=== PATIENT | male | born 1965 | race Caucasian/White ===

== ENCOUNTER 2024-12-10 13:58 | Outpatient (AMB) | payer OTHER, SELFPAY ==
--- NOTE | 2024-12-10 14:02 | MHC.PC.OV ---
Vital Signs 12/10/24 14:10 Height 6 ft 4 in Weight 253 lb BMI 30.8 BP 104/72 Blood Pressure Location Lt brachial Position Sitting Pulse 105 H Pulse Source Pulse Oximeter Temp 98.1 F Temp Source Temporal Artery Scan Pulse Oximetry (%) 95 Oxygen Delivery Method Room Air Intake Visit Reasons: [employer]CTION[employer]NALYST PE Request Intake Note: Raymundo presents in the office today to establish care. Allergies No Known Allergies Allergy (Verified 12/10/24 14:06) Tobacco use date assessed: 12/10/24 Dental Screening Dental Screen Date: 12/10/24 Did you have a dental visit in the last 12 months?: Yes Did you have a dental problem in the last 6 months where you did not have access to dental care?: No Was dental information given to patient?: Patient has dentist HPI HPI Comments History of Present Illness Details 59-year-old male with no significant chronic medical issues presents to establish care. He does not recall the last time he had a primary care provider. It has been years. His heart rate was mildly elevated. He had 2 diet Cokes before the visit. No chest pain, palpitations or shortness of breath. Admits to being nervous about the appointment. He has never had a colonoscopy or done the Cologuard test. Denies family history of colon cancer. He has no blood in his stools, abdominal pain or weight loss. He endorses 1-2 stools a day which are soft or formed. No diarrhea. Patient reports he is not sure he wants to do the screening test for colon cancer. I recommended it, and he will contact me if he wants to proceed with either test. He is a nonsmoker. He drinks 1 beer with dinner and every few months goes out with a friend and has 3-4 beers. Reports that he used to drink heavily in his youth. The patient says he received shingles vaccine, flu vaccine and COVID-19 vaccines at his pharmacy. Overdue for Tdap. Administered today. He will receive the pneumonia vaccine at his pharmacy. He will schedule an eye exam. He is up-to-date with dental examination. ROS: Constitutional: No unexplained weight loss, fever, chills, fatigue or night sweats. Eyes: No vision changes, blurry vision, double vision, eye pain, eye redness, eye discharge. ENT: No hearing loss, sneezing, congestion, runny nose or sore throat. Respiratory: No shortness of breath, cough or sputum production. Cardiovascular: No chest pain, chest pressure or chest discomfort. No palpitations or pedal edema. Gastrointestinal: No anorexia, nausea, vomiting or diarrhea. No abdominal pain or blood in stool. Genitourinary: No dysuria, hematuria, urinary frequency. Neurologic: No headache, dizziness, syncope, unilateral weakness, ataxia, numbness or tingling in the extremities. Musculoskeletal: No joint swelling. He had pain in his right shoulder from sleeping on it repeatedly which he did exercises for at home and used a sling, and this is nearly gone. Hematologic/Lymphatics: No bleeding or bruising. No painful lymph nodes. Skin: No rash or itching. No changing moles or skin lesions. Endocrine: No cold or heat intolerance. No polyuria or polydipsia. Psychiatric: No depression or anxiety. No SI/HI. Physical exam: Constitutional: Alert, in no distress. Head: Normocephalic. Eyes: Pupils are equal, round and reactive to light. Extraocular muscles intact. Ear, Nose and Throat: Canals clear. TMs normal. Normal nasal mucosa. No nasal discharge. No oral lesions. Neck: Supple, Full range of motion. No lymphadenopathy. No palpable thyroid masses. Respiratory: Clear to auscultation. : Patient declined Cardiovascular: S1 S2 regular. No murmurs. No carotid bruits. Gastrointestinal: Abdomen soft, non-tender, non-distended. Normal bowel sounds. No palpable masses. Neurologic: No focal neurological deficits. Symmetric patellar reflexes. Moves all extremities spontaneously. Sensation intact bilaterally. Skin: No rashes Musculoskeletal: No gross deformities. Normal range of motion. Extremities: Warm and well perfused. No clubbing, cyanosis or edema. Intact peripheral pulses bilaterally. Psychiatric: Normal mood and affect [facility] Medical History (Updated 12/10/24 @ 14:25 by JANIE Parekh) Screening for cardiovascular condition Routine physical examination Fracture of arm Finger fracture Hemopneumothorax Surgical History (Updated 12/10/24 @ 14:26 by JANIE Parekh) History of surgery on arm H/O discectomy Hx of tonsillectomy Family History (Updated 12/10/24 @ 14:08 by Razia Rodrigues MA) Father Cardiovascular disease Maternal Grandfather Cardiovascular disease Social History (Updated 12/10/24 @ 14:10 by Razia Rodrigues MA) Housing: House Alcohol intake: current Patient Tobacco Use Status: Never used Tobacco e-Cigarette/Vaping Use: Never Used Second Hand Smoke Exposure: No service: Yes Current occupational status: employed Current occupation: [employer] Current occupational exposures/hazards: Yes Cognitive needs: No Hearing needs: No Vision needs: Yes Questionnaire PHQ-9 Over the last 2 weeks, how often have you been bothered by any of the following problems? 1. Little interest or pleasure in doing things: not at all 2. Feeling down, depressed, or hopeless: not at all 3. Trouble falling or staying asleep, or sleeping too much: not at all 4. Feeling tired or having little energy: not at all 5. Poor appetite or overeating: not at all 6. Feeling bad about yourself - or that you are a failure or have let yourself or your family down: not at all 7. Trouble concentrating on things, such as reading the newspaper or watching television: not at all 8. Moving or speaking so slowly that other people could have noticed. Or the opposite - being so fidgety or restless that you have been moving around a lot more than usual: not at all 9. Thoughts that you would be better off or of hurting yourself in some way: not at all Total score: 0 Depression Screening Interpretation: Negative Depression Screening Done: Yes 05245 - PHQ-9 Billing: Yes Source: Developed by Drs. Lon Thomas, Merry Chin, Billy Jenkins and colleagues, with an educational jaspal from [employer]. Thrive Questionnaire Date Thrive assessed: 12/10/24 I am a: Patient What is your living situation today?: I have a steady place to live Within the past 12 months, did the food you bought not last and you didn't have the money to get more?: Never true Within the past 12 months, did you worry whether your food would run out before you got money to buy more?: Never true Do you have trouble paying for medicines?: No Do you have trouble getting transportation to medical appointments?: No Do you have trouble paying your heating and electricity bill?: No Do you have trouble taking care of your child, family member or friend?: No Do you have trouble with day-to-day activities such as bathing, preparing meals, shopping, managing finances, etc.?: No Are you currently unemployed and looking for a job?: No Are you interested in more education?: No Please select the resources that you would like help with: None Currently or been in a relationship where the following occur: No concerns reported THRIVE Score: 0 AUDIT C Alcohol Use Questionnaire (AUDIT-C) 1. How often do you have a drink containing alcohol?: Monthly or less 2. How many drinks containing alcohol do you have on a typical day when you are drinking?: 1 or 2 3. How often do you have six or more drinks on one occasion?: Less than monthly Total Score: 2 ABDULLAHI-7 AMB Questionnaire ABDULLAHI-7 Date ABDULLAHI - 7 assessed: 12/10/24 Feeling nervous, anxious, or on edge: 0 = Not at all Not being able to stop or control worryin = Not at all Worrying too much about different things: 0 = Not at all Trouble relaxin = Not at all Being so restless that it is hard to sit still: 0 = Not at all Becoming easily annoyed or irritable: 0 = Not at all Feeling afraid as if something awful might happen: 0 = Not at all Total ABDULLAHI-7 score (0-4 normal; 5-9 mild; 10-14 moderate; 15-21 severe): 0 Source: Developed by Drs. Lon Thomas, Merry Chin, Billy Jenkins and colleagues, with an educational jaspal from [employer]. ABDULLAHI-7 Assessment Billing ABDULLAHI-7 Assessment Tool: ABDULLAHI-7 Assessment 01016 Physical exam (Primary Care) Vital Signs: Last Vital Signs Temp 98.1 F 12/10/24 14:10 Pulse 105 H 12/10/24 14:10 BP 104/72 12/10/24 14:10 Pulse Ox 95 12/10/24 14:10 Oxygen Delivery Method Room Air 12/10/24 14:10 BMI result Body Mass Index 30.8 Tobacco/Smoking Status: Tobacco use Status Tobacco use date assessed 12/10/24 12/10/24 14:19 Patient Tobacco Use Status Never used Tobacco 12/10/24 14:19 e-Cigarette/Vaping Use Never Used 12/10/24 14:19 PHQ-9: PHQ-9 Score PHQ-9: Total score 0 12/10/24 14:20 Depression Screening Interpretation: Negative Thrive Assessment: Date of Thrive Assessment Date Thrive assessed 12/10/24 12/10/24 14:04 Currently or been in a relationship where the following occur: No concerns reported Immunizations Boostrix Tdap 2.5 Lf unit-8 mcg-5 Lf/0.5 mL intramuscular syringe Performing Provider: JANIE Parekh Performing Location: [facility] Administered by: Mandi Frost RN on 12/10/24 14:49 Dose Route Admin Location Dispensed Lot Number Expiration Date [employer] 0.5 mL IM Left Deltoid 0.5 mL [id number] 03/30/27 54080-201-25 [employer] Total Dispensed Waste 0.5 mL 0 % VIS Given Date VIS Provided VIS Publication Date 12/10/24 Single Vaccine 21 Eligibility Eligibility Date Funding Source Not [facility] Eligible 12/10/24 Private Coding Level of Care Code New Pt Prev Care 40-64y(68623) Diagnoses Routine physical examination Z00.00 Screening for cardiovascular condition Z13.6 Additional Codes ABDULLAHI-7 Assessment Billing - ABDULLAHI-7 Assessment Tool: ABDULLAHI-7 Assessment 20694 ([id number]) PHQ-9 - 89478 - PHQ-9 Billing: Yes ([id number]) Assessment & Plan Assessment & Plan (1) Routine physical examination: Code(s): Z00.00 - Encounter for general adult medical examination without abnormal findings Category: Medical (2) Screening for cardiovascular condition: Code(s): Z13.6 - Encounter for screening for cardiovascular disorders Category: Medical Plan Patient is seen today for a routine physical. As part of this visit we reviewed the following issues, which are considered and essential part of preventative health in this age group: - Testicular cancer screening, which includes self exam teaching - Screening for colon cancer - Discussed Prostate cancer screening - Blood pressure screening annually - Cholesterol screening - Nutritional and exercise counseling - Counseling of injury prevention including fire prevention, smoke alarms and seat belt usage - Screening for depression - Education about skin cancer - Recommendations about immunizations - Recommendation of an eye exam - Screening for substance abuse Schedule physical exam in 1 year. Orders: Orders Prostate Specific Antigen Today Z00.00 - Encounter for general adult medical examination without abnormal findings, Z12.5 - Encounter for screening for malignant neoplasm of prostate, Z13.6 - Encounter for screening for cardiovascular disorders Complete Blood Count no Diff Today Z00.00 - Encounter for general adult medical examination without abnormal findings, Z13.6 - Encounter for screening for cardiovascular disorders Comprehensive Met. Panel Today Z00.00 - Encounter for general adult medical examination without abnormal findings, Z13.6 - Encounter for screening for cardiovascular disorders TSH reflex Free T4 Today Z00.00 - Encounter for general adult medical examination without abnormal findings, Z13.6 - Encounter for screening for cardiovascular disorders Lipid Panel Today Z00.00 - Encounter for general adult medical examination without abnormal findings, Z13.6 - Encounter for screening for cardiovascular disorders TDaP Immunization Today Z23 - Encounter for immunization
[2024-12-10 14:10] VITALS: BP 104/72; PULSE 105; TEMP 36.7; O2SAT 95; BMI 30.8
== END 2024-12-10 14:49 | disposition home or self-care (01) ==
LOC: HO.HMCFM 13:58
PROVIDERS: PCP Physician Assistant Medical; Visit Provider Physician Assistant Medical
DX: Z00.00 Encounter for general adult medical examination without abnormal findings (principal); Z13.6 Encounter for screening for cardiovascular disorders; Z23 Encounter for immunization

== ENCOUNTER → 2024-12-10 13:58 | Outpatient (BNVA) | payer OTHER, SELFPAY | PROVIDERS: PCP Physician Assistant Medical; Visit Provider Physician Assistant Medical | DX: Z00.00 Encounter for general adult medical examination without abnormal findings (principal); Z23 Encounter for immunization; Z13.31 Encounter for screening for depression; Z13.30 Encounter for screening examination for mental health and behavioral disorders, unspecified | CPT/HCPCS: 90471; 90715; 96127 ==

== ENCOUNTER 2025-03-18 08:49 | Outpatient (REF) | payer OTHER, SELFPAY ==
[2025-03-18 12:04] LABS: Alanine Aminotransferase 24 U/L (0-40); Albumin Level 4.4 g/dL (3.5-5.0); Alkaline Phosphatase 79 U/L (39-117); Anion Gap 11 (12-20); Aspartate Amino Transferase 40 U/L (5-37); Blood Urea Nitrogen 18 mg/dL (9-16); Calcium 9.5 mg/dL (8.4-10.2); Carbon Dioxide 31 mmol/L (22-29); Chloride 106 mmol/L (96-108); Cholesterol 151 mg/dL (<200); Estimated Glomerular Filt Rate > 60; HDL Cholesterol 43 mg/dL (>40); Potassium 4.1 mmol/L (3.3-5.1); Sodium 144 mmol/L (135-145); Total Protein 7.2 g/dL (6.5-8.0); Triglycerides 147 mg/dL (<150)
[2025-03-18 12:08] LABS: Hematocrit 47.9 % (42.0-52.0); Hemoglobin 16.0 g/dl (14.0-18.0); Mean Corpuscular HGB Conc 33.4 g/dl (31.0-36.0); Mean Corpuscular Hemoglobin 31.5 pg (27.0-33.0); Mean Corpuscular Volume 94.3 fL (80.0-98.0); NRBC Abs Auto 0.000 X10*3/uL (0.0-0.012); NRBC Pct Auto 0.0 /100WBC (0.0-0.2); Platelet Count 255 X10*3/uL (160-400); Red Blood Count 5.08 X10*6/uL (4.60-5.80); White Blood Count 5.1 X10*3/uL (4.8-10.8)
[2025-03-18 12:23] LABS: Prostate Specific Antigen 1.60 ng/mL (<0.05-4.0)
== END 2025-03-18 08:50 | disposition home or self-care (01) ==
LOC: HO.WFDLDS 08:49
PROVIDERS: Visit Provider Physician Assistant Medical
DX: Z00.00 Encounter for general adult medical examination without abnormal findings (principal); Z13.6 Encounter for screening for cardiovascular disorders; Z12.5 Encounter for screening for malignant neoplasm of prostate; Z13.29 Encounter for screening for other suspected endocrine disorder
CPT/HCPCS: 36415; 80053; 80061; 84153; 84443; 85027